=== PATIENT | female | born 1975 | race Caucasian/White ===

== ENCOUNTER 2020-12-08 19:00 | Emergency (ER) | payer OTHER ==
[2020-12-08 19:08] VITALS: BP 130/76; PULSE 76; TEMP 97.6; BMI 40.7
[2020-12-08 20:08] LABS: BASO % 1.2 % (0-2.0); HEMATOCRIT 39.8 % (32.4-45.2); HEMOGLOBIN 13.5 GM/dl (10.7-15.3); LYMPH % 27.8 % (8-40); MCH 29.6 pg (25.7-33.7); MEAN CELL VOLUME 87.1 fl (80-96); MONO % 6.8 % (3.8-10.2); NEUT % 62.2 % (42.8-82.8); PLATELET COUNT 313 K/MM3 (134-434); RBC 4.57 M/mm3 (3.60-5.2); WHITE BLOOD COUNT 9.4 K/mm3 (4.0-10.8)
[2020-12-08 20:22] LABS: INR 1.11 (0.82-1.09); PROTHROMBIN TIME (PATIENT) 12.3 SEC (10.2-13.0)
[2020-12-08 20:27] LABS: ALBUMIN 4.3 g/dl (3.4-5.0); BILIRUBIN,TOTAL 0.6 mg/dl (0.2-1); CALCIUM 9.4 mg/dl (8.5-10); CREATININE 0.6 mg/dl (0.55-1.3); TOT PROT 7.7 g/dl (6.4-8.2)
== END 2020-12-08 22:02 | disposition home or self-care (01) ==
LOC: FER 19:00
DX: M77.02 Medial epicondylitis, left elbow (principal)
CPT/HCPCS: 36415; 80053; 82550; 85025; 85610; 93971; 99284-25